=== PATIENT | male | born 1955 | race Caucasian/White ===

== ENCOUNTER → 2017-03-08 | Day surgery (SDC) | payer OTHER ==
[2017-03-08] VITALS (7 sets, daily range): BP systolic 73–153; BP diastolic 46–101; PULSE 68–92; TEMP 97.7–98.3
[~2017-03-08] VITALS: Ht 173.4 cm; Wt 76.7 kg
[~2017-03-08] MED LIST: COLACE 100100 MG/CAP PO; FLOMAX 0.40.4 MG/CAP PO; MOTRIN 600600 MG/TAB PO; NORCO 325 MG-51 TAB PO
== END ==
LOC: SDCO 07:03
DX: K40.90 Unilateral inguinal hernia, without obstruction or gangrene, not specified as recurrent (principal); D17.6 Benign lipomatous neoplasm of spermatic cord; I10 Essential (primary) hypertension
CPT/HCPCS: C1781; J0360; J0690; J1885; J2250; J2270; J2704; J7120

== ENCOUNTER → 2019-12-12 | Outpatient (CLI) | payer MEDICARE | LOC: COL.PUL 10-01 10:00 | DX: R06.02 Shortness of breath (principal); Z87.891 Personal history of nicotine dependence | CPT/HCPCS: J7674 ==

== ENCOUNTER → 2020-03-19 | Outpatient (CLI) | payer MEDICARE | LOC: ZCOL.LAB 10:36 | DX: Z01.818 Encounter for other preprocedural examination (principal); Z20.828 Contact with and (suspected) exposure to other viral communicable diseases ==

== ENCOUNTER → 2022-09-03 | Outpatient (CLI) | payer MEDICARE ==
[2022-09-03 14:26] LABS: CALCIUM 9.4 mg/dL (8.4-10.2); CREATININE, serum 1.01 mg/dL (0.72-1.25); POTASSIUM 4.5 mmol/L (3.5-4.5)
== END ==
LOC: COL.RAD 12:55
PROVIDERS: Internal Medicine Pulmonary Disease
DX: R91.8 Other nonspecific abnormal finding of lung field (principal)
CPT/HCPCS: Q9967